=== PATIENT | male | born 1980 | race Caucasian/White ===

== ENCOUNTER 2018-07-29 18:11 | Observation (INO) | payer BC, SELFPAY ==
[2018-07-29 18:12] VITALS: BP 131/80; PULSE 65; RESP 14; TEMP 36.7; O2SAT 100; BMI 27.9
[2018-07-29 18:57] VITALS: BP 131/80; PULSE 65; RESP 14; TEMP 36.7; O2SAT 98
--- NOTE | 2018-07-29 19:00 | CT_ITS ---
STUDY: CT ABDOMEN AND PELVIS WITHOUT CONTRAST REASON FOR EXAM: Male, 37 years old. Right lower quadrant pain for 2 days. RADIATION DOSAGE (If Supplied By Facility): CTDIvol = ( 13.85 ) mGy, DLP = ( 738.25 ) mGycm TECHNIQUE: Transaxial images were obtained from the dome of the diaphragm to the symphysis pubis without oral contrast, and without intravenous contrast. Sagittal and coronal images were reconstructed. Individualized dose optimization techniques were used for this CT. COMPARISON: None. FINDINGS: The visualized lung bases are unremarkable. The visualized portions of the heart are within normal limits. Normal liver. Normal gallbladder and extrahepatic biliary system. Normal spleen. Normal pancreas. Normal bilateral adrenal glands. Normal right kidney. Normal left kidney. Normal bilateral ureters. Normal visualized stomach. Normal small intestine. Normal colon. Appendix is mildly prominent measuring 8 mm in thickness. There is minimal stranding. There is no abscess or fluid collection. There multiple small lymph nodes in the cecal mesocolon. Normal abdominal aorta. Normal inferior vena cava. Normal retroperitoneum. Normal urinary bladder. Normal prostate. There is no pelvic lymphadenopathy. No free air or free fluid is seen within the peritoneal cavity. Normal abdominal wall. There is minimal anterolisthesis of L5 on S1 with bilateral pars defects. The spine is otherwise unremarkable. CT/Abdomen/Pelvis W IV Cont ONLY IMPRESSION: 1. Mild appendicitis with minimal stranding. There is associated lymphadenopathy. 2. No other evidence of acute intra-abdominal or pelvic abnormality. 3. Mild spondylolisthesis at L5-S1 with pars defects. N.B. : The above information has been verbally conveyed by Angelito Shaffer DO to Hamzah Martinez MD, on 07/29/2018 19:56:17 (ET). Electronically Signed: Angelito Shaffer DO at 19:57 EDT Tel [phone], Service support ,
--- NOTE | 2018-07-29 19:03 | ED.VISSUMM ---
- ER Visit Summary Date of Service: 07/29/18 Chief Complaint: Right-sided abdominal pain primarily right lower quadrant History of Present Illness: The patient is a 37 M dyspnea past medical or surgical history. Patient states Friday evening started having right-sided abdominal pain is now become dull and aching and primarily the right quadrant. He denies any nausea, vomiting or diarrhea. No fever. No dysuria. No kidney stone history. No prior abdominal surgeries. Nothing particular makes it better or worse. States he is urinating normally. States he has been eating today. Physical Examination: Well-appearing young male. Vital signs are stable. Afebrile. HEENT exam unremarkable. Moist mucous membranes. Neck nontender. No lymphadenopathy. Lungs clear to auscultation bilaterally. Heart regular rhythm no murmur. Rate about 70. Abdomen soft nondistended normal bowel sounds no peritoneal signs. Tender both right upper quadrant but primarily and more so on the right lower quadrant. No signs of obstruction. No hernias or masses. Extremities moves all 4. Calves nontender. Back nontender. Neurologically awake and alert with no focal motor deficits. Test Results: CBC White count 8. Hemoglobin 15. Chemistries normal normal gap and creatinine. Liver enzymes lipase normal. UA normal. CT abdomen pelvis IV contrast shows acute appendicitis Emergency Department Course and Treatment: 1 L normal saline. Patient did not want anything for pain or nausea at this time. Treatment Plan: Patient started on IV Zosyn. I spoke to Dr. Otilia Austin on-call for general surgery and she will come and evaluate the patient for an acute appendicitis. Disposition: To the operating room. Impression: Acute abdominal pain secondary to acute appendicitis This note was generated with [employer] dictation software. It may contain incorrect words, spelling, and punctuation that were not noted in review of the chart prior to signing ED Disposition - Plan for ED Patient: Referrals: Joey Fisher MD [Primary Care Provider] -
[2018-07-29] MEDS: 0.9% Normal Saline 1,000 ML 1000 ML IV (19:25)
[2018-07-29 19:42] LABS: Bacteria 0 SEEN /hpf (None Seen); Mucous, Urine 0 SEEN /hpf (<or=2+); Red Blood Cells-Urine 0 SEEN /hpf (0-5); Squamous Epithelial Cells - UA 0 SEEN /hpf (0-5); White Blood Cells 0 SEEN /hpf (0-5)
[2018-07-29 19:45] LABS: Color, Urine Yellow (Yellow); Glucose, Dipstick Normal (Normal); Ketone-Dipstick Negative (Negative); Leukocyte Esterase-Dipstick Negative /ul (Negative); Nitrite-Dipstick Negative (Negative); Occult Blood-Urine Negative /ul (Negative); Protein-Dipstick Negative (Negative); Specific Gravity, Urine 1.015 (1.002-1.030); Urine Bilirubin Dipstick Negative (Negative); Urine Clarity Clear (Clear); Urine Urobilinogen Normal (Normal)
[2018-07-29 20:03] LABS: AST(SGOT) 16 U/L (15-37); Alanine Aminotransfer ALT/SGPT 28 U/L (16-61); Albumin, Serum 4.1 g/dL (3.2-5.0); Alkaline Phosphatase 66 U/L (45-117); Anion Gap 4 (5-15); BUN 12 mg/dL (7-18); BUN/Creat Ratio 12.9 RATIO (10-20); Bilirubin, Direct 0.14 mg/dL (0.00-0.30); Calcium,Total 8.9 mg/dL (8.5-10.1); Chloride 104 mmol/L (98-107); Creatinine, Serum 0.93 mg/dL (0.70-1.30); EST Glomerular Filtration Rate 98 mL/min (>60); Est Glom Filt Rate - Afr Amer 118 mL/min (>60); Estimated Creatinine Clearance 113.38 ml/min; Glucose 88 mg/dL (74-106); Lipase 76 U/L (73-393); Potassium 3.9 mmol/L (3.5-5.1); Protein, Total 8.1 g/dL (6.4-8.2); Sodium Level 137 mmol/L (136-145)
[2018-07-29 20:08] LABS: Absolute Lymphocyte Count 2.45 X10^3/ul (0.83-4.51); Absolute Neutrophil Count 4.9 X10^3/uL (2.0-7.7); Basophil# 0.04 X10^3/uL; Basophil% 0.5 % (0-1); Eosinophil# 0.06 X10^3/uL; Eosinophils% 0.7 % (0-5); Hematocrit 44.6 % (40-54); Hemoglobin 15.1 g/dl (13.0-16.5); Lymphocyte # 2.45 X10^3/ul (4.0); Lymphocyte % 30.1 % (19-41); Mean Corp Hgb Conc 33.9 g/gl (32-36); Mean Corpuscular Hgb 29.5 pg (27.0-32.0); Mean Corpuscular Volume 87.1 fL (80-94); Mean Platelet Vol. 10.8 fl (6.2-12.0); Monocyte# 0.63 X10^3/uL; Monocyte% 7.7 % (0-10); Neutrophil # 4.92 X10^3/uL (2.7-7.7); Neutrophil % 60.4 % (47-70); Platelet Count 201 K/mm3 (150-450); RBC Distribution Width SD 40.5 fl (35.1-43.9); Red Blood Count 5.12 M/mm3 (4.6-6.2); White Blood Count 8.2 K/mm3 (4.4-11.0)
[2018-07-29 20:10] LABS: POSITIVE COUNT NO; POSITIVE DIFFERENTIAL NO; POSITIVE MORPHOLOGY NO
[2018-07-29 20:40] VITALS: BP 127/84; PULSE 60; RESP 17; TEMP 36.7; O2SAT 99; BMI 27.9
--- NOTE | 2018-07-29 21:18 | HP.PCM_ITS ---
History and Physical Date of Admission: 07/29/18 Chief Complaint: abdominal pain History of Present Illness: 37 y/o otherwise healthy WM presents with right sided abdominal pain since Friday evening. Has been waxing and waning, presently dull, severe ache. Denies fevers. Denies nausea/emesis. Denies diarrhea. Denies previous such abdominal pain. CT scan findings c/w acute appendicitis. Normal WBC with normal differential Past Medical History: denies major medical illnesses Past Surgical History: ear tube placement right finger pinning Medications: denies taking chronic medications Allergies: Has no known drug allergies Social history: TOB use denies Lives with and four children Review of Systems: General - denies fevers Cardiovascular denies chest pain, denies history of heart attack Pulmonary denies shortness of breath, denies coughing up blood Gastrointestinal as per HPI, denies blood in stools Neurological denies numbness/weakness of extremities, denies seizures Genitourinary denies burning with urination, denies blood in urine Hematological denies spontaneous/prolonged bleeding Skin denies open non healing wounds Musculoskeletal had finger injury Endocrine denies diabetes Psychological no mood changes Physical examination: Vital signs Temp 98.0F HR 65 BP 131/80 RR 14 General WD/WN WM in no apparent distress, alert and oriented, not septic appearing HEENT Normocephalic. EOM intact with sclera clear and no icterus noted. Neck is supple with no jugular venous distention noted. Trachea is midline. Lungs no labored breathing noted, such as retractions. No cough heard. Heart regular. Abdomen soft but tender in the right lower quadrant with rebound tenderness, decreased bowel sounds Extremities no calf tenderness noted. No pitting edema noted. Genitourinary/Rectal deferred Skin normal skin integrity. Neurological gait normal, no focal deficits noted. Psychological normal affect, patient is calm and appropriate Impression: right lower quadrant abdominal pain appendicitis by CT scan Discussion/Plan: I have discussed the above with the patient and his who is present with him I have offered the patient the procedure of laparoscopic appendectomy. I have explained the procedure to the patient. I have counseled the patient as to the risks of the procedure, including but not limited to: infection, bleeding, injury to any blood vessels/nerves, scar tissue, injury to any intraabdominal organs, injury to kidney/ureters, injury to bowel/bladder, intraabdominal abscess/bleeding, hernias at incisional sites, wound infections, possible open procedure, complications of anesthesia, p ostoperative pneumonia/cardiac problems/blood clots etc. the patient understands. He agrees to proceed. I have answered all questions to the patient?s satisfaction and the patient has no further questions.
[2018-07-29 21:34] VITALS: BP 136/98; PULSE 62; PULSE 63; RESP 16; O2SAT 97; O2SAT 99
--- NOTE | 2018-07-29 21:55 | APP_PTH ---
PATIENT: BRIDGER COVARRUBIAS LOC: MS3 U#:[id number] AGE/SX: 37/M ROOM: [facility] [place] RE07/30/[address]: Dr. Otilia Austin MD : [id number] BED: 1 DIS: 07/30/2018 SPEC #: [id number] RECD: 07/30/18 07:42 STATUS: BACILIO REQ #: [id number] MONICA: 07/29/18 21:[address]: Otilia Austin DEPT: SURGICAL PATHOLOGY RECD BY: Bao Krishnamurthy ENTERED: 07/30/18 10:26 SP TYPE: APPENDIX OTHR DR: Dr. Joey Fisher MD Tissues: Appendix, NOS Procedures: Surgery Specimen Level III HEADER OPERATION: Laparoscopic appendectomy PRE-OP DIAGNOSIS: Acute appendicitis TISSUE SUBMITTED: Appendix MICROSCOPIC DIAGNOSIS Appendix, appendectomy: No evidence of appendicitis. AM:almaz 07/31/18 MICROSCOPIC DESCRIPTION Slides are reviewed. GROSS DESCRIPTION Received is one container labeled with the patient's name and designated appendix. The specimen consists of an appendix measuring 7.5 cm in length and up to 1 cm in diameter. The attached periappendiceal adipose tissue measures up to 2 cm in width. The serosa is congested. No obvious perforation is identified. The lumen is pin point. No fecalith is identified. The specimen is totally submitted in four cassettes. / SJ:rg 07/30/18 TC:2 CPT: 50377
--- NOTE | 2018-07-29 22:32 | PCM.DC.APPY ---
Discharge Diet: No Restrictions - drink plenty of fluids, avoid carbonated beverages for a couple of days Discharge Activity: Return to Normal Activity, May not drive while taking narcotic pain medications. Lifting Restrictions: no lifting greater than 20 pounds for two weeks Call your doctor if your incision/area has: Continuous Slow Oozing, Foul Smelling Discharge Call your doctor if you observe: Fever of 101 or Higher Additional Dressing/Incision Instructions:: Leave dressings in place. May get wet in shower. Do not soak - no tub baths/swimming Medications to take at Discharge Hydrocodone/Acetaminophen [[place] 5-325 Tablet] 1 ea PO Q8 PRN 5 Days #15 tab 07/30/18 Allergies/Adverse Reactions: Allergies No Known Allergies Allergy (Verified 07/29/18 18:17) The following prescriptions were given: Hydrocodone/Acetaminophen [[place] 5-325 Tablet] 1 ea PO Q8 PRN 5 Days #15 tab PRN Reason: Mod-Severe Pain (4-02/18) Primary Care Physician: Joey Fisher MD [Primary Care Provider] - Test Results: Test results from this visit will be discussed in further detail at your follow-up appointment, if applicable. Please Follow Up With: Otilia Austin MD - call When: to be seen in 7-10 days, please call for date and time, thank you
--- NOTE | 2018-07-29 22:37 | DCINST_ITS ---
Discharge Diet: No Restrictions - drink plenty of fluids, avoid carbonated beverages for a couple of days Discharge Activity: Return to Normal Activity, May not drive while taking narcotic pain medications. Lifting Restrictions: no lifting greater than 20 pounds for two weeks Call your doctor if your incision/area has: Continuous Slow Oozing, Foul Smelling Discharge Call your doctor if you observe: Fever of 101 or Higher Additional Dressing/Incision Instructions:: Leave dressings in place. May get wet in shower. Do not soak - no tub baths/swimming Medications to take at Discharge Hydrocodone/Acetaminophen [[place] 5-325 Tablet] 1 ea PO Q8 PRN 5 Days #15 tab 07/30/18 Allergies/Adverse Reactions: Allergies No Known Allergies Allergy (Verified 07/29/18 18:17) The following prescriptions were given: Hydrocodone/Acetaminophen [[place] 5-325 Tablet] 1 ea PO Q8 PRN 5 Days #15 tab PRN Reason: Mod-Severe Pain (4-02/18) Primary Care Physician: Joey Fisher MD [Primary Care Provider] - Test Results: Test results from this visit will be discussed in further detail at your follow- up appointment, if applicable. Please Follow Up With: Otilia Austin MD - call When: to be seen in 7-10 days, please call for date and time, thank you
--- NOTE | 2018-07-29 22:38 | PCM.OPRPT ---
Report of Operation Date of Procedure: 07/29/18 Pre-Operative Diagnosis: appendicitis by CT scan, right lower quadrant abdominal pain Post-Operative Diagnosis: acute appendicitis, no perforation Surgery/Procedure Performed:: laparoscopic appendectomy Description of Surgical Findings:: acute appendicitis, no perforation Type of Anesthesia:: General Anesthesiologist: Martínez Perez Specimen's removed: appendix Estimated Blood Loss (mL): < 5 Fluids Replaced: 700 ml RL Description of Procedure: After informed consent was obtained, the patient was brought into the operating room and placed in the supine position on the operating table. Appropriate time out protocol was followed. The patient was then placed under general anesthesia. The patient?s abdomen was then prepped with a sterile surgical skin preparation and sterile surgical drapes were placed. The infraumbilical skin fold was grasped with penetrating clamps and the skin and subcutaneous tissues were infiltrated with 0.5% marcaine with epinephrine. A transverse skin incision was then made. A Veress needle was then inserted into the intraabdominal cavity and checked to be in the proper position with a normal saline drop test. A CO2 pneumoperitoneum was then created. Once this was achieved, the Veress needle was removed and a 5 mm trocar was placed in its stead. A 5 mm laparoscope was then inserted into the trocar. Careful examination of the intraabdominal contents was then done. There was no evidence of injury to any internal organs from placement of the Veress needle or the trocar. Under direct visualization, a 12mm suprapubic trocar and a 5mm left lower quadrant trocar was then placed into the intraabdominal cavity. The skin and subcutaneous tissues at these sites were first infiltrated with 0.5% marcaine with epinephrine. Attention was then directed to the right lower quadrant. The appendix was visualized. The mesentery of the appendix was taken down by cauterizing the tissue from the free edge to the base of the appendix with the Harmonic scalpel. Once the base of the appendix was freed of surrounding tissues, then the linear gastrointestinal stapling device was brought into the abdominal cavity via the 12mm port and placed across the base of the appendix. The stapling device was fired, thus stapling across the base of the appendix and transecting it simultaneously. The appendix was then placed in an Endobag and this was brought out through the suprapubic trocar. The appendix was then forwarded to Pathology for analysis. The appendiceal stump was carefully examined. There was no evidence of any active bleeding or fecal leakage. The surrounding tissues were also examined and there was no evidence of any active bleeding or fecal/bile leakage. The intraabdominal cavity was examined and there was no evidence of further inflammation or tissue abnormality. There was no evidence of any peritoneal fluid. The CO2 pneumoperitoneum was released and all trocars were removed intact. The suprapubic fascia was reapproximated with a figure-of-8 vicryl suture. All skin incisions were reapproximated with monocryl suture. Cavilon and steristrips were applied to reinforce skin closure and proper sterile dressings were placed. The patient was then extubated and brought to the Recovery Room in stable condition. - Complications none noted - Admit VTE Documentation VTE Present on Admission: Yes VTE Mechan Device Prophylaxis: SCD's
[2018-07-29] MEDS: Bupiv/Epi 0.5% Mpf 30 ML Vial (23:17)
[2018-07-29 23:44] VITALS: BP 158/96; PULSE 92; RESP 16; TEMP 36.5; O2SAT 98
[2018-07-29] MEDS: Ketorolac 15 MG/ML Vial IV (23:57)
[2018-07-30] MEDS: Lactated Ringers 1,000 ML 100 ML IV ×2 (00:01→09:21)
[2018-07-30 00:02] VITALS: BP 127/84; BP 149/101; PULSE 64; RESP 16; O2SAT 99
[2018-07-30 00:14] VITALS: BP 127/84; BP 131/84; PULSE 70; RESP 16; TEMP 36.5
[2018-07-30 00:43] VITALS: BP 109/70; PULSE 56; RESP 16; TEMP 36.7; O2SAT 93; BMI 27.2; BMI 27.3
[2018-07-30 02:43] VITALS: BP 100/55; PULSE 54; RESP 16; TEMP 36.8; O2SAT 93
[2018-07-30 04:43] VITALS: BP 102/58; PULSE 52; RESP 16; TEMP 36.9; O2SAT 94
[2018-07-30] MEDS: Ketorolac 15 MG/ML Vial IV (05:15)
[2018-07-30 09:20] VITALS: BP 107/59; PULSE 47; RESP 16; TEMP 36.8; O2SAT 97
== END 2018-07-30 11:08 | disposition home or self-care (01) ==
LOC: ED 19:26 → SDC 22:20 → MS3 22:20 → SDC 07-30 08:43 → MS3 07-30 10:05
PROVIDERS: Admitting Provider Surgery; Emergency Provider Emergency Medicine; Family Provider Internal Medicine; PCP Internal Medicine; Referring Provider Surgery; Visit Provider Surgery
PROC: 0DTJ4ZZ Resection of Appendix, Percutaneous Endoscopic Approach (ICD-10-PCS; CPT 44970; principal; 2018-07-29 21:55)
DX: K35.80 Unspecified acute appendicitis (principal)
CPT/HCPCS: 44970; 74177; 80048; 80076; 81001; 83690; 85025; 88304; 96361; 96374; 99218; 99283; J7030; J7120; Q9967; G0378; J2405